=== PATIENT | male | born 1960 | race Caucasian/White ===

== ENCOUNTER 2019-10-25 12:38 | Outpatient (CLI) | payer OTHER | END 2019-10-25 12:39 | disposition home or self-care (01) | LOC: RAD 12:38 | DX: Z11.1 Encounter for screening for respiratory tuberculosis (principal) ==

== ENCOUNTER → 2019-12-13 | Outpatient (CLI) | payer OTHER | END | disposition home or self-care (01) | LOC: TOM 16:02 | DX: G44.301 Post-traumatic headache, unspecified, intractable (principal) ==

== ENCOUNTER → 2021-04-23 | Outpatient (CLI) | payer OTHER | END | disposition home or self-care (01) | LOC: RAD 16:30 | DX: I12.9 Hypertensive chronic kidney disease with stage 1 through stage 4 chronic kidney disease, or unspecified chronic kidney disease (principal); N18.2 Chronic kidney disease, stage 2 (mild) ==

== ENCOUNTER → 2021-07-30 08:00 | Outpatient (CLI) | payer OTHER | END | disposition home or self-care (01) | LOC: PPH VACUNA 08:00 | PROVIDERS: ATTEND Emergency Medicine Pediatric Emergency Medicine | DX: Z23 Encounter for immunization (principal) ==

== ENCOUNTER 2021-12-01 08:02 | Outpatient (CLI) | payer OTHER | END 2021-12-01 08:09 | disposition home or self-care (01) | LOC: LAB 08:02 | DX: N04.0 Nephrotic syndrome with minor glomerular abnormality (principal) ==

== ENCOUNTER 2021-12-01 08:04 | Outpatient (CLI) | payer OTHER | END 2021-12-01 08:07 | disposition home or self-care (01) | LOC: RAD 08:04 | DX: N04.4 Nephrotic syndrome with diffuse endocapillary proliferative glomerulonephritis (principal) ==

== ENCOUNTER 2021-12-04 08:56 | Outpatient (CLI) | payer OTHER | END 2021-12-04 09:50 | disposition home or self-care (01) | LOC: SONOGRAMA 08:56 | DX: N04.4 Nephrotic syndrome with diffuse endocapillary proliferative glomerulonephritis (principal) ==

== ENCOUNTER → 2022-01-28 10:44 | Outpatient (CLI) | payer OTHER | END | disposition home or self-care (01) | LOC: LAB 10:44 | PROVIDERS: ATTEND Pediatrics | DX: N04.2 Nephrotic syndrome with diffuse membranous glomerulonephritis (principal); N03.2 Chronic nephritic syndrome with diffuse membranous glomerulonephritis; Z00.00 Encounter for general adult medical examination without abnormal findings; N04.1 Nephrotic syndrome with focal and segmental glomerular lesions ==

== ENCOUNTER 2022-03-13 07:23 | Outpatient (CLI) | payer OTHER | END 2022-03-13 07:24 | disposition home or self-care (01) | LOC: LAB 07:23 | PROVIDERS: ATTEND Pediatrics | DX: M04.2 Cryopyrin-associated periodic syndromes (principal); Z87.441 Personal history of nephrotic syndrome; N03.2 Chronic nephritic syndrome with diffuse membranous glomerulonephritis ==

== ENCOUNTER 2022-04-22 10:27 | Outpatient (CLI) | payer OTHER | END 2022-04-22 10:39 | disposition home or self-care (01) | LOC: LAB 10:27 | PROVIDERS: ATTEND Pediatrics | DX: Z87.441 Personal history of nephrotic syndrome (principal) ==

== ENCOUNTER 2022-07-30 10:15 | Outpatient (CLI) | payer OTHER | END 2022-07-30 10:30 | disposition home or self-care (01) | LOC: LAB 10:15 | PROVIDERS: ATTEND General Practice | DX: R80.9 Proteinuria, unspecified (principal); E78.5 Hyperlipidemia, unspecified; E55.9 Vitamin D deficiency, unspecified; N39.0 Urinary tract infection, site not specified; R42 Dizziness and giddiness; Z00.00 Encounter for general adult medical examination without abnormal findings; Z12.5 Encounter for screening for malignant neoplasm of prostate ==

== ENCOUNTER → 2022-07-31 07:47 | Outpatient (CLI) | payer OTHER | END | disposition home or self-care (01) | LOC: LAB 07:47 | PROVIDERS: ATTEND General Practice | DX: R80.9 Proteinuria, unspecified (principal); E78.5 Hyperlipidemia, unspecified; E55.9 Vitamin D deficiency, unspecified; N39.0 Urinary tract infection, site not specified; R42 Dizziness and giddiness; Z00.00 Encounter for general adult medical examination without abnormal findings; Z12.5 Encounter for screening for malignant neoplasm of prostate ==

== ENCOUNTER 2022-08-05 09:36 | Outpatient (CLI) | payer OTHER | END 2022-08-05 09:46 | disposition home or self-care (01) | LOC: PPH VACUNA 09:36 | PROVIDERS: ATTEND Emergency Medicine Pediatric Emergency Medicine | DX: Z23 Encounter for immunization (principal) ==

== ENCOUNTER → 2022-11-18 10:08 | Outpatient (CLI) | payer OTHER | END | disposition home or self-care (01) | LOC: LAB 11-03 14:10 | PROVIDERS: ATTEND Pediatrics | DX: E11.9 Type 2 diabetes mellitus without complications (principal); D64.9 Anemia, unspecified; N39.0 Urinary tract infection, site not specified; E78.6 Lipoprotein deficiency; Z00.00 Encounter for general adult medical examination without abnormal findings; N03.0 Chronic nephritic syndrome with minor glomerular abnormality ==

== ENCOUNTER 2023-02-03 12:34 | Outpatient (CLI) | payer OTHER | END 2023-02-03 12:41 | disposition home or self-care (01) | LOC: RAD 12:34 | PROVIDERS: ATTEND Pediatrics | DX: Z00.00 Encounter for general adult medical examination without abnormal findings (principal) ==

== ENCOUNTER 2023-02-12 09:06 | Outpatient (CLI) | payer OTHER | END 2023-02-12 09:15 | disposition home or self-care (01) | LOC: LAB 09:06 | DX: M04.8 Other autoinflammatory syndromes (principal); Z87.441 Personal history of nephrotic syndrome ==

== ENCOUNTER 2023-06-23 09:24 | Outpatient (CLI) | payer OTHER | END 2023-06-23 09:25 | disposition home or self-care (01) | LOC: LAB 09:24 | PROVIDERS: ATTEND Pediatrics | DX: Z00.00 Encounter for general adult medical examination without abnormal findings (principal); N03.2 Chronic nephritic syndrome with diffuse membranous glomerulonephritis; Z87.11 Personal history of peptic ulcer disease; N04.2 Nephrotic syndrome with diffuse membranous glomerulonephritis ==

== ENCOUNTER 2023-09-03 13:04 | Outpatient (CLI) | payer OTHER ==
[2023-09-03 14:03] LABS: PH,URINE 5.5 (5.0-8.0); URINE APPEARANCE Clear; URINE BILIRRUBIN Negative (NEGATIVE); URINE BLOOD Negative; URINE COLOR Yellow; URINE GLUCOSE Negative (NEGATIVE); URINE LEUKOCYTE Negative; URINE NITRATE Negative
[2023-09-03 14:06] LABS: URINE BACTERIA 15.1 uL (0.0-1933); URINE RBC 3.5 uL (0.0-20.8)
[2023-09-03 14:08] LABS: HEMATOCRIT 34.9 % (39.0-48.0); HEMOGLOBIN 12.2 g/dL (13-16.00); MEAN CELL VOLUME 85.4 fL (80.0-100.00); MEAN CORPUSCULAR HEMOGLOBIN 29.7 pg (27.00-32.0); MEAN CORPUSCULAR HGB CONC 34.9 g/dl (32.0-36.0); PLATELET COUNT 155 K/uL (150-450); RED BLOOD COUNT 4.09 M/uL (4.00-6.00); RED CELL DISTRIBUTION WIDTH 14.4 % (11.5-14.5)
[2023-09-03 14:31] LABS: ALBUMIN 3.3 gm/dL (3.4-5.0); BILIRUBIN TOTAL 0.7 mg/dL (0.3-1.2); CALCIUM 8.5 mg/dL (8.5-10.1); CHOL HDL RATIO 2.5 (0-5.0); CREATININE SERUM 1.31 mg/dL (0.70-1.30); GFR 55.44; GLOBULINA 2.5 G/DL (2.4-3.5); POTASSIUM 4.4 mEq/L (3.5-5.1); TOTAL PROTEIN 5.8 gm/dL (6.4-8.2)
[2023-09-03 14:33] LABS: URINE EPITHELIAL CELLS 1.3 uL (0.0-38.8); URINE PROTEIN 300 (NEGATIVE); URINE WBC 1.2 uL (0.0-23.2)
[2023-09-03 14:45] LABS: T4 TOTAL 4.55 UG/DL (4.5-12.1); TSH 2.43 uIU/mL (0.358-3.74)
[2023-09-03 14:48] LABS: CREATINE CLEARANCE 131.5 ML/MIN (97-137); CREATININE SERUM 1.31 mg/dL (0.8-1.3)
[2023-09-03 14:49] LABS: URINE PROT QUANT 24 HR 3428.1 MG/24HR (42-225); URINE PROT QUANT 24HR 175.8 MG/DL
[2023-09-03 14:57] LABS: T3 TOTAL 1.18 ng/ml (0.846-2.02); VITAMIN D3 25 HYDROXY 32.74 ng/ml (30-120)
== END 2023-09-03 13:05 | disposition home or self-care (01) ==
LOC: LAB 13:04
DX: N03.2 Chronic nephritic syndrome with diffuse membranous glomerulonephritis (principal)

== ENCOUNTER 2024-01-12 13:20 | Outpatient (CLI) | payer OTHER | END 2024-01-12 13:23 | disposition home or self-care (01) | LOC: RAD 13:20 | DX: Z00.00 Encounter for general adult medical examination without abnormal findings (principal) ==

== ENCOUNTER → 2024-01-20 | Outpatient (CLI) | payer OTHER ==
[2024-01-20 11:49] LABS: URINE APPEARANCE Clear; URINE BILIRRUBIN Negative (NEGATIVE); URINE BLOOD Negative; URINE COLOR Yellow; URINE GLUCOSE Negative (NEGATIVE); URINE LEUKOCYTE Negative; URINE NITRATE Negative; URINE UROBILINOGEN 0.2 E.U./dl
[2024-01-20 11:59] LABS: URINE EPITHELIAL CELLS 1.3 uL (0.0-38.8); URINE PROTEIN 300 (NEGATIVE); URINE RBC 1.8 uL (0.0-20.8); URINE WBC 0.9 uL (0.0-23.2)
[2024-01-20 12:07] LABS: HEMATOCRIT 36.3 % (39.0-48.0); HEMOGLOBIN 12.6 g/dL (13-16.00); INR 0.98; MEAN CELL VOLUME 83.6 fL (80.0-100.00); MEAN CORPUSCULAR HEMOGLOBIN 28.9 pg (27.00-32.0); MEAN CORPUSCULAR HGB CONC 34.6 g/dl (32.0-36.0); PARTIAL THROMBOPLASTIN TIME 31.3 SECONDS (22.0-34.0); PLATELET COUNT 191 K/uL (150-450); PROTHROMBIN TIME 10.3 SECONDS (9.0-11.5); RED BLOOD COUNT 4.34 M/uL (4.00-6.00); RED CELL DISTRIBUTION WIDTH 14.7 % (11.5-14.5)
[2024-01-20 12:24] LABS: ALBUMIN 3.4 gm/dL (3.4-5.0); BILIRUBIN TOTAL 0.51 mg/dL (0.3-1.2); CALCIUM 8.8 mg/dL (8.5-10.1); CHOL HDL RATIO 2.7 (0-5.0); CREATININE SERUM 1.19 mg/dL (0.70-1.30); FERRITIN 50.8 NG/ML (26-388); GFR 61.74; GLOBULINA 2.3 G/DL (2.4-3.5); POTASSIUM 4.31 mEq/L (3.5-5.1); PROSTATIC SPECIFIC ANTIGEN 0.455 NG/ML (0.010-4.00); TOTAL PROTEIN 5.7 gm/dL (6.4-8.2)
[2024-01-20 13:16] LABS: CORTISOL 4.85 ug/dl; VITAMIN D3 25 HYDROXY 31.64 ng/ml (30-120)
[2024-01-20 13:22] LABS: ERYTHROCYTE SEDIMENTATION RATE 15 mm/hr
== END | disposition home or self-care (01) ==
LOC: LAB 10:49
DX: N03.2 Chronic nephritic syndrome with diffuse membranous glomerulonephritis (principal); Z87.441 Personal history of nephrotic syndrome

== ENCOUNTER 2024-07-12 11:03 | Outpatient (CLI) | payer OTHER ==
[2024-07-12 12:00] LABS: URINE APPEARANCE Clear; URINE BILIRRUBIN Negative (NEGATIVE); URINE BLOOD Negative; URINE COLOR Yellow; URINE GLUCOSE Negative (NEGATIVE); URINE KETONE Negative (NEGATIVE); URINE LEUKOCYTE Negative; URINE NITRATE Negative; URINE UROBILINOGEN 0.2 E.U./dl
[2024-07-12 12:04] LABS: URINE RBC 2.4 uL (0.0-20.8)
[2024-07-12 12:05] LABS: URINE BACTERIA 2.5 uL (0.0-1933); URINE EPITHELIAL CELLS 0.9 uL (0.0-38.8); URINE PROTEIN 100 (NEGATIVE); URINE WBC 0.3 uL (0.0-23.2)
[2024-07-12 12:09] LABS: CREATININE URINE RANDOM 98.5 MG/DL (30-125)
[2024-07-12 12:26] LABS: URINE PROT QUANT 24HR 120.9 MG/DL
[2024-07-12 12:39] LABS: HEMATOCRIT 36.6 % (39.0-48.0); HEMOGLOBIN 12.8 g/dL (13-16.00); MEAN CELL VOLUME 82.9 fL (80.0-100.00); MEAN CORPUSCULAR HEMOGLOBIN 28.9 pg (27.00-32.0); MEAN CORPUSCULAR HGB CONC 34.9 g/dl (32.0-36.0); PLATELET COUNT 190 K/uL (150-450); RED BLOOD COUNT 4.41 M/uL (4.00-6.00)
[2024-07-12 13:09] LABS: URINE PROT QUANT 24 HR 2448.23 MG/24HR (42-225)
[2024-07-12 13:21] LABS: URIC ACID 7.9 mg/dL (3.5-8.5)
[2024-07-12 13:23] LABS: ALBUMIN 3.5 gm/dL (3.4-5.0); BILIRUBIN TOTAL 0.53 mg/dL (0.3-1.2); CALCIUM 8.9 mg/dL (8.5-10.1); CHOL HDL RATIO 2.6 (0-5.0); CREATININE SERUM 1.3 mg/dL (0.70-1.30); FERRITIN 68.7 NG/ML (26-388); GFR 55.75; GLOBULINA 2.7 G/DL (2.4-3.5); POTASSIUM 5.14 mEq/L (3.5-5.1); TOTAL PROTEIN 6.2 gm/dL (6.4-8.2)
[2024-07-12 14:03] LABS: CREATININE SERUM 1.3 mg/dL (0.8-1.3)
[2024-07-12 14:04] LABS: CREATINE CLEARANCE 138.7 ML/MIN (97-137)
[2024-07-13 14:13] LABS: FOLIC ACID > 20.00 ng/ml (4.78-20)
== END 2024-07-12 11:12 | disposition home or self-care (01) ==
LOC: LAB 11:03
PROVIDERS: ATTEND Pediatrics
DX: E11.9 Type 2 diabetes mellitus without complications (principal); E78.00 Pure hypercholesterolemia, unspecified

== ENCOUNTER 2024-11-03 08:25 | Outpatient (CLI) | payer OTHER ==
[2024-11-03 09:10] LABS: PH,URINE 5.5 (5.0-8.0); URINE APPEARANCE Clear; URINE BILIRRUBIN Negative (NEGATIVE); URINE BLOOD Negative; URINE COLOR Yellow; URINE GLUCOSE Negative (NEGATIVE); URINE KETONE Negative (NEGATIVE); URINE LEUKOCYTE Negative; URINE NITRATE Negative; URINE UROBILINOGEN 0.2 E.U./dl
[2024-11-03 09:11] LABS: HEMATOCRIT 39.5 % (39.0-48.0); HEMOGLOBIN 13.8 g/dL (13-16.00); MEAN CELL VOLUME 85.8 fL (80.0-100.00); MEAN CORPUSCULAR HEMOGLOBIN 29.9 pg (27.00-32.0); MEAN CORPUSCULAR HGB CONC 34.8 g/dl (32.0-36.0); PLATELET COUNT 192 K/uL (150-450); RED CELL DISTRIBUTION WIDTH 14.4 % (11.5-14.5)
[2024-11-03 09:15] LABS: URINE BACTERIA 7.3 uL (0.0-1933); URINE EPITHELIAL CELLS 2.3 uL (0.0-38.8); URINE RBC 3.9 uL (0.0-20.8)
[2024-11-03 09:22] LABS: URINE CAST 0.29 uL (0.0-1.40); URINE PROTEIN 300 (NEGATIVE); URINE WBC 1.5 uL (0.0-23.2)
[2024-11-03 10:13] LABS: MYCOPLASMA PNEUMONIAE IGM NON REACTIVE (NO REACTIVE)
[2024-11-03 10:26] LABS: ALBUMIN 3.1 gm/dL (3.4-5.0); BILIRUBIN TOTAL 0.54 mg/dL (0.3-1.2); CALCIUM 8.8 mg/dL (8.5-10.1); CREATININE SERUM 1.58 mg/dL (0.70-1.30); GFR 44.37; GLOBULINA 3.1 G/DL (2.4-3.5); POTASSIUM 3.97 mEq/L (3.5-5.1); TOTAL PROTEIN 6.2 gm/dL (6.4-8.2)
== END 2024-11-03 15:05 | disposition home or self-care (01) ==
LOC: LAB 08:25
PROVIDERS: ATTEND Pediatrics
DX: R05.9 Cough, unspecified (principal); J11.1 Influenza due to unidentified influenza virus with other respiratory manifestations; Z20.828 Contact with and (suspected) exposure to other viral communicable diseases; R50.9 Fever, unspecified

== ENCOUNTER 2024-12-13 12:52 | Outpatient (CLI) | payer OTHER ==
[2024-12-13 14:06] LABS: HEMATOCRIT 39.6 % (39.0-48.0); HEMOGLOBIN 13.6 g/dL (13-16.00); MEAN CELL VOLUME 86.9 fL (80.0-100.00); MEAN CORPUSCULAR HEMOGLOBIN 29.8 pg (27.00-32.0); MEAN CORPUSCULAR HGB CONC 34.3 g/dl (32.0-36.0); PLATELET COUNT 196 K/uL (150-450); RED BLOOD COUNT 4.56 M/uL (4.00-6.00); RED CELL DISTRIBUTION WIDTH 14.8 % (11.5-14.5)
[2024-12-13 14:08] LABS: PH,URINE 5.5 (5.0-8.0); URINE APPEARANCE Clear; URINE BILIRRUBIN Negative (NEGATIVE); URINE BLOOD Negative; URINE COLOR Yellow; URINE GLUCOSE Negative (NEGATIVE); URINE KETONE Negative (NEGATIVE); URINE LEUKOCYTE Negative; URINE NITRATE Negative; URINE UROBILINOGEN 0.2 E.U./dl
[2024-12-13 14:20] LABS: URINE BACTERIA 1.2 uL (0.0-1933); URINE CAST 0.44 uL (0.0-1.40); URINE EPITHELIAL CELLS 0.9 uL (0.0-38.8); URINE PROTEIN 300 (NEGATIVE); URINE RBC 1.4 uL (0.0-20.8); URINE WBC 1.5 uL (0.0-23.2)
[2024-12-13 15:22] LABS: T3 TOTAL 1.16 ng/ml (0.846-2.02); VITAMIN D3 25 HYDROXY 40.82 ng/ml (30-120)
[2024-12-13 15:24] LABS: ALBUMIN 3.4 gm/dL (3.4-5.0); BILIRUBIN TOTAL 0.47 mg/dL (0.3-1.2); CALCIUM 9.1 mg/dL (8.5-10.1); CHOL HDL RATIO 4.6 (0-5.0); CREATININE SERUM 1.3 mg/dL (0.70-1.30); GFR 55.58; GLOBULINA 2.8 G/DL (2.4-3.5); POTASSIUM 4.79 mEq/L (3.5-5.1); PROSTATIC SPECIFIC ANTIGEN 0.491 NG/ML (0.010-4.00); T4 TOTAL 7.06 UG/DL (4.5-12.1); TOTAL PROTEIN 6.2 gm/dL (6.4-8.2)
[2024-12-13 15:27] LABS: TSH 5.36 uIU/mL (0.358-3.74)
== END 2024-12-13 13:01 | disposition home or self-care (01) ==
LOC: LAB 12:52
PROVIDERS: ATTEND Pediatrics
DX: N05.0 Unspecified nephritic syndrome with minor glomerular abnormality (principal); N04.20 Nephrotic syndrome with diffuse membranous glomerulonephritis, unspecified; Z87.441 Personal history of nephrotic syndrome

== ENCOUNTER 2024-12-18 12:31 | Outpatient (CLI) | payer OTHER ==
[2024-12-18 14:17] LABS: URINE PROT QUANT 24HR 165.5 MG/DL
[2024-12-18 14:20] LABS: URINE PROT QUANT 24 HR 4675.38 MG/24HR (42-225)
[2024-12-18 14:50] LABS: CREATINE CLEARANCE 130.6 ML/MIN (97-137); CREATININE SERUM 1.37 mg/dL (0.8-1.3)
== END 2024-12-18 12:52 | disposition home or self-care (01) ==
LOC: LAB 12:31
PROVIDERS: ATTEND Pediatrics
DX: R04.2 Hemoptysis (principal); Z87.441 Personal history of nephrotic syndrome; R05.9 Cough, unspecified

== ENCOUNTER 2025-01-16 13:37 | Outpatient (CLI) | payer OTHER ==
[2025-01-16 14:15] LABS: CREATININE URINE 85.1 MG/DL; URINE PROT QUANT 24HR 214.9 MG/DL
[2025-01-16 14:29] LABS: URINE PROT QUANT 24 HR 5533.68 MG/24HR (42-225)
[2025-01-16 14:37] LABS: CREATININE SERUM 1.3 mg/dL (0.70-1.30)
[2025-01-16 14:38] LABS: CREATINE CLEARANCE 117.3 ML/MIN (97-137); CREATININE SERUM 1.3 mg/dL (0.8-1.3)
== END 2025-01-16 14:33 | disposition home or self-care (01) ==
LOC: LAB 13:37
DX: N04.2 Nephrotic syndrome with diffuse membranous glomerulonephritis (principal)

== ENCOUNTER 2025-07-30 10:54 | Outpatient (CLI) | payer OTHER ==
[2025-07-30 11:26] LABS: BASO % 1.1 % (0.1-1.2); EOS # 0.17 (0.04-0.54); EOS % 3.6 % (0.7-7.0); LYMPH # 1.39 (1.18-3.74); LYMPH % 29.2 % (19.3-53.1); MEAN PLATELET VOLUME 10.80 fl (9.4-12.4); MONO # 0.33 (0.24-0.82); MONO % 6.9 % (4.7-12.5); NEUT # 2.81 (1.56-6.13); NEUT % 59.0 % (34.0-71.1); RED CELL DISTRIBUTION WIDTH 13.1 % (11.6-14.4)
[2025-07-30 11:29] LABS: URINE APPEARANCE Clear; URINE BILIRRUBIN Negative (NEGATIVE); URINE BLOOD Negative; URINE COLOR Yellow; URINE GLUCOSE Negative (NEGATIVE); URINE KETONE Negative (NEGATIVE); URINE LEUKOCYTE Negative; URINE NITRATE Negative; URINE UROBILINOGEN 0.2 E.U./dl
[2025-07-30 11:30] LABS: URINE BACTERIA 213.5 uL (0.0-1933); URINE EPITHELIAL CELLS 2.1 uL (0.0-38.8); URINE RBC 11.7 uL (0.0-20.8); URINE WBC 7.9 uL (0.0-23.2)
[2025-07-30 12:01] LABS: URINE CAST 0.87 uL (0.0-1.40); URINE PROTEIN 300 (NEGATIVE); URINE SPERM MANY
[2025-07-30 12:20] LABS: CREATININE URINE 97.0 MG/DL; CREATININE URINE RANDOM 85.8 MG/DL (30-125); URINE PROT QUANT 24HR 226.2 MG/DL
[2025-07-30 12:21] LABS: URINE PROT QUANT 24 HR 6616.35 MG/24HR (42-225)
[2025-07-30 12:31] LABS: ALT/SGPT 31.0 U/L (12-78); AST/SGOT 23.0 U/L (15-37); BILIRUBIN TOTAL 0.53 mg/dL (0.3-1.2); BUN CREA RATIO 17.0 (7.0-25.0); CHOL HDL RATIO 2.5 (0-5.0); CREATININE SERUM 1.15 mg/dL (0.70-1.30); GFR 64.02; GLOBULINA 2.6 G/DL (2.4-3.5); GLUCOSE FASTING 90.0 mg/dL (65-100); HDL 53.0 mg/dl (40-60); LDL 60.0 mg/dl (0-130); OSMOLALITY SERUM 290.0 MOSM/KG (275-295); PROSTATIC SPECIFIC ANTIGEN 0.413 NG/ML (0.010-4.00); T4 TOTAL 5.18 UG/DL (4.5-12.1); TSH 3.54 uIU/mL (0.358-3.74); VLDL 17.0 (0-39)
[2025-07-30 12:43] LABS: CREATINE CLEARANCE 171.7 ML/MIN (97-137); CREATININE SERUM 1.15 mg/dL (0.8-1.3)
[2025-07-30 13:01] LABS: T3 TOTAL 1.02 ng/ml (0.846-2.02); VITAMIN D3 25 HYDROXY 38.07 ng/ml (30-120)
== END 2025-07-30 12:40 | disposition home or self-care (01) ==
LOC: LAB 10:54
DX: E66.9 Obesity, unspecified (principal); E56.9 Vitamin deficiency, unspecified; R80.9 Proteinuria, unspecified

== ENCOUNTER 2025-10-10 12:28 | Outpatient (CLI) | payer OTHER | END 2025-10-10 15:00 | disposition home or self-care (01) | LOC: RAD 12:28 | DX: M54.50 Low back pain, unspecified (principal); M25.552 Pain in left hip; M76.02 Gluteal tendinitis, left hip ==